=== PATIENT | male | born 1950 | race Caucasian/White ===

== ENCOUNTER → 2019-07-29 06:13 | Outpatient (CLI) | payer MEDICARE, SELFPAY ==
--- NOTE | 2019-07-29 | CA_ITS ---
APPROVED REPORT Exam: Pharmacologic Technologist: Maggie Gonzales Ht: 5 ft 8 in Wt: 156 lbs BSA: 1.84 m2 HR: 55 bpm BP: 139/58 mmHg Indications: CAD, Angina Medical History Medications: Amlodipine,,,,, Isosorbide,,,,, Aspirin,,,,, Losartan,,,,, Atorvastatin,,,,, Carvedilol,,,,, Iron,,,,, CloPIdogrel,,,,, Stress Test Details Test: LEXISCAN HR Resting HR: 67 bpm Max Heart Rate (APMHR): 151 bpm Max HR Achieved: 81 bpm Target HR (85% APMHR): 128 bpm % of APMHR: 53 Recovery HR: 70 bpm BP Resting BP: 139.0/58.0 mmHg Max BP: 139.0/58.0 mmHg Recovery BP: 131.0/59.0 mmHg ECG Clinical Reason for Termination: Completed Protocol Exercise duration: 04:05 min Highest Stage Achieved: Exercise capacity: 1.0 METs Stress ECG Conclusion Resting ECG: Sinus bradycardia, right bundle branch block Symptoms: None Arrhythmias/Ectopy: PVC's, Quadrigeminy ST-T Changes: Baseline right bundle branch block precludes diagnostic interpretation. Less than 1.[address] segment changes noted. Conclusion: Non-diagnostic stress test. Patient received the infusion per protocol without chest pain or significant arrhythmias. Frequent PVC's noted throughout stress and recovery. Transient quadrigeminy noted. Baseline EKG is sinus bradycardia with right bundle branch block. See the nuclear report for further interpretaion. Electronically signed by : Sherwin Nguyen, 07/31/2019 15:08:27
--- NOTE | 2019-07-29 06:17 | CA_ITS ---
[facility] RADIOLOGICAL CONSULTATION Patient Name : BARRINGTON HERNANDEZ X-RAY # : [id number] Physician: NELLY, TABITHA AGE: 69Y : 1950 00:00:00 ( M ) Exam : CA ECHO DOPPLER COMPLETE ACC # : [id number] Study Date : 07/29/2019 08:29:42 Patient Class : O FINAL REPORT CLINICAL DATA: FINDINGS: TRANSCRIBED REPORT EXAM: Comprehensive 2D, Doppler, and color-flow Echocardiogram Hay Farmer: Mary Carmen John CRT Ht: 5 ft 8 in Wt: 155lbs BSA: 1.83 BP: 143/62 mmHg Indications: CABG, stents, copd, smoker, htn, hyperlipidemia 2D Dimensions IVSd 1.40 cm LVEF (Visual) 52.90 % PWd 0.90 cm LVDd 5.80 cm LVDs 4.20 cm LVOT 1.90 cm (M/F) 1.5-2.5 M-Mode Dimensions LA Diam 4.20 cm (1.9-4.0) Ao Diam 3.90 cm (2.0-3.7) AV Cusp 1.90 cm (1.5-2.6) LV Diastology E/A Ratio 1.20 MED E' 6.34 (< 7 cm/sec) E'/MED E' Ratio 14.60 (>14) LAT E' 7.21 (<10 cm/sec) E/LAT E' Ratio 12.90 (>14) Aortic Valve AoV Peak Lemuel. 122.00 (50-130 cm/s) AO Peak GR. 6.00 mmHg Mitral Valve MV E Max Lemuel. 92.80 (40-130 cm/s) MV A Velocity 79.00 (40-130 cm/s) E/A Ratio 1.20 Pulmonary Valve DC End VMAX 137.00 cm/s PA Accel Time 134.00 (>120 msec) Tricuspid Valve TR P. Velocity 233.00 cm/s RAP Estimate 10.00 mmHg RVSP 32.00 mmHg Electronically signed by : IMPRESSION: Dictated by at Transcribed by at
--- NOTE | 2019-07-29 06:31 | NM_ITS ---
APPROVED REPORT Exam: Nuclear Stress Test Indication: Chest pain, SOB, HTN, High Cholesterol, Tobacco use, Family history, CAD, CABG Patient Location: Outpatient Stress Tech: Maggieray Gonzales [place] Tech:Chacha Alberto, THANGT, RT (R)(N) Ht: 5 ft 8 in Wt: 156 lbs HR: 55 bpm BP: 139/58 mmHg BSA: 1.84 m2 BMI: 23.7 History: Chest pain, SOB, HTN, High Cholesterol, Tobacco use, Family history, CAD, CABG Procedure: Patient received a 0.4 mg of intravenous Lexiscan, resting heart rate 55 bpm, resting blood pressure 139/58 mmHg, with Lexiscan maximum heart rate achived was 72 bpm which is % of the maximum predicted heart rate and blood pressure was 136/64 mmHg. With Lexiscan, patient denied any complaint of chest pain. Cardiac Stress and Resting SPECT Images: Cardiac Stress and Resting SPECT images were obtained using technetium 99m Myoview 31.9 mCi stress and 10.65 mCi at rest. The EF is low at 39% with global hypokinesia There is a large fixed defect in the inferior wall consistent with an area of infarction No reversible defects evident Conclusion: The EF is low at 39% with global hypokinesia There is a large fixed defect in the inferior wall consistent with an area of infarction No reversible defects evident Electronically signed by : Jeremie Farmer MD 07/31/2019 16:57:20
--- NOTE | 2019-07-29 07:19 | HMH.ITSHM ---
Current Home Medications as stated by this patient Kristopher Gallegos or roofing sales representative. []IRON ASA ALPRAZOLAM ISOSORBIDE CARVEDILOL CLOPIDOGREL AMLODIPINE LOSARTAN ATORVASTATIN
== END ==
PROVIDERS: PCP Internal Medicine; Visit Provider Internal Medicine
DX: I20.9 Angina pectoris, unspecified (principal); I34.0 Nonrheumatic mitral (valve) insufficiency; I48.0 Paroxysmal atrial fibrillation
CPT/HCPCS: 78452; 93017; 93306; A9502; J2785

== ENCOUNTER → 2019-08-20 11:45 | Outpatient (CLI) | payer MEDICARE, SELFPAY ==
[2019-08-20 13:12] LABS: Amphetamine/Metha Screen,Urine Negative ng/mL (<1000); Barbiturates Screen,Urine Negative ng/mL (<200); Benzodiazepines Screen,Urine Positive ng/mL (<200); Cannabinoid Screen,Urine Negative ng/mL (<50); Cocaine Screen,Urine Negative ng/mL (<300); Methadone Screen,Urine Negative ng/mL (<300); Opiate Screen,Urine Positive ng/mL (<300); Phencyclidine Screen,Urine Negative ng/mL (<25)
== END ==
PROVIDERS: Visit Provider Nurse Practitioner Family
DX: Z51.81 Encounter for therapeutic drug level monitoring (principal)
CPT/HCPCS: 80305

== ENCOUNTER → 2020-02-25 11:05 | Outpatient (CLI) | payer MEDICARE, SELFPAY ==
[2020-02-25 11:56] LABS: Blood Urea Nitrogen 29 mg/dl (9-20); Carbon Dioxide 22 mmol/L (22.0-30.0); Estimated Glomerular Filt Rate 35 ml/min (>60); GFR (African American) 43 ML/MIN (>60)
[2020-02-25 11:57] LABS: Calcium 8.9 mg/dl (8.4-10.2); Glucose 124 mg/dl (74-100)
[2020-02-25 11:58] LABS: Anion Gap 13.8 mEq/L (5-15); Chloride 108 mmol/L (98-107); Potassium 4.8 mmoL/L (3.5-5.1); Sodium 139 mmol/L (136-145)
[2020-02-25 16:36] LABS: Amphetamine/Metha Screen,Urine Negative ng/ml (<1000)
[2020-02-25 16:37] LABS: Barbiturates Screen,Urine Negative ng/ml (<200)
[2020-02-25 16:38] LABS: Benzodiazepines Screen,Urine Positive ng/ml (<200); Cannabinoid Screen,Urine Negative ng/ml (<50)
[2020-02-25 16:39] LABS: Cocaine Screen,Urine Negative ng/ml (<300)
[2020-02-25 16:40] LABS: Opiate Screen,Urine Positive ng/ml (<300)
[2020-02-25 16:41] LABS: Phencyclidine Screen,Urine Negative ng/ml (<25)
[2020-02-25 16:52] LABS: Methadone Screen,Urine Negative ng/ml (<300)
== END ==
PROVIDERS: Urology; Visit Provider Nurse Practitioner Family
DX: Z79.899 Other long term (current) drug therapy (principal); E78.5 Hyperlipidemia, unspecified; F41.9 Anxiety disorder, unspecified; I11.9 Hypertensive heart disease without heart failure; I25.10 Atherosclerotic heart disease of native coronary artery without angina pectoris; I42.9 Cardiomyopathy, unspecified; I48.91 Unspecified atrial fibrillation; J44.9 Chronic obstructive pulmonary disease, unspecified; Z72.0 Tobacco use
CPT/HCPCS: 36415; 80048; 80305

== ENCOUNTER → 2020-08-25 11:32 | Outpatient (CLI) | payer MEDICARE, SELFPAY ==
[2020-08-25 11:56] LABS: Basophils # 0.1 K/mm3 (0-0.2); Basophils % 0.7 % (0.1-2.0); Eosinophils # 0.5 K/mm3 (0.0-0.4); Eosinophils % 4.9 % (0.1-12.0); Hematocrit 40.5 % (42.0-52.0); Hemoglobin 12.9 g/dL (14.1-18.0); Lymphocytes # 2.6 K/mm3 (0.7-4.5); Lymphocytes % 27.1 % (10-50); Mean Corpuscular HGB Conc 31.7 g/dL (31.8-35.4); Mean Corpuscular Hemoglobin 31.8 pg (27.0-31.2); Mean Corpuscular Volume 100.4 fl (80-94); Mean Platelet Volume 9.8 fl (7.4-10.4); Monocytes # 0.4 K/mm3 (0.1-1.0); Monocytes % 4.5 % (1.7-9.3); Neutrophils % 62.9 % (37.0-80.0); Platelet Count 176 K/mm3 (142-424); Red Blood Count 4.04 M/mm3 (4.60-6.20); Red Cell Distribution Width 12.6 % (11.5-17.5); White Blood Count 9.5 K/mm3 (4.8-10.8)
[2020-08-25 13:12] LABS: Chloride 114 mmol/L (98-107); Sodium 146 mmol/L (136-145)
[2020-08-25 13:13] LABS: Potassium 5.2 mmoL/L (3.5-5.1)
[2020-08-25 13:15] LABS: Alanine Aminotransferase 11 U/L (12-78); Alkaline Phosphatase 112 U/L (38-126); Anion Gap 15.2 mEq/L (5-15); Aspartate Amino Transferase 19 U/L (17-59); Bilirubin,Direct 0.2 mg/dl (0.0-0.4); Bilirubin,Indirect 0.4 mg/dL (0.0-0.9); Bilirubin,Total 0.6 mg/dl (0.2-1.3); Bilirubin,Unconjugated 0.4 mg/dL (0.0-1.1); Blood Urea Nitrogen 31 mg/dl (9-20); Carbon Dioxide 22 mmol/L (22.0-30.0); Cholesterol 201 mg/dl (140-200); Estimated Glomerular Filt Rate 30 ml/min (>60); GFR (African American) 36 ML/MIN (>60); Triglycerides 142 mg/dl (30-150); VLDL Cholesterol 28 mg/dL (0-40)
[2020-08-25 13:16] LABS: Albumin Level 4.6 g/dl (3.5-5.0); Calcium 9.6 mg/dl (8.4-10.2); Chol/HDL Ratio 3.7 (1-3.5); Glucose 81 mg/dl (74-100); HDL Cholesterol 54 mg/dl (40-60); Total Protein,Serum 7.4 g/dl (6.3-8.2)
[2020-08-25 13:27] LABS: Direct LDL Cholesterol 103.73 mg/dL (100-129)
[2020-08-25 13:46] LABS: Thyroid Stimulating Hormone 2.67 uIU/mL (0.465-4.68)
[2020-08-25 16:01] LABS: Amphetamine/Metha Screen,Urine Negative ng/ml (<1000); Benzodiazepines Screen,Urine Positive ng/ml (<200)
[2020-08-25 16:02] LABS: Barbiturates Screen,Urine Negative ng/ml (<200)
[2020-08-25 16:03] LABS: Cannabinoid Screen,Urine Negative ng/ml (<50); Methadone Screen,Urine Negative ng/ml (<300)
[2020-08-25 16:04] LABS: Cocaine Screen,Urine Negative ng/ml (<300)
[2020-08-25 16:05] LABS: Opiate Screen,Urine Positive ng/ml (<300)
[2020-08-25 16:06] LABS: Phencyclidine Screen,Urine Negative ng/ml (<25)
[2020-08-25 20:31] LABS: Free T4 (Free Thyroxine) 1.18 ng/dl (0.78-2.19)
== END ==
PROVIDERS: Visit Provider Physician Assistant
DX: E78.5 Hyperlipidemia, unspecified (principal); F32.9 Major depressive disorder, single episode, unspecified; F41.9 Anxiety disorder, unspecified; I11.9 Hypertensive heart disease without heart failure; I20.9 Angina pectoris, unspecified; I45.10 Unspecified right bundle-branch block; I48.91 Unspecified atrial fibrillation; J44.9 Chronic obstructive pulmonary disease, unspecified; R42 Dizziness and giddiness; Z72.0 Tobacco use; Z79.899 Other long term (current) drug therapy
CPT/HCPCS: 36415; 80048; 80061; 80076; 80305; 84439; 84443; 85025

== ENCOUNTER → 2020-08-27 09:45 | Outpatient (CLI) | payer MEDICARE, SELFPAY ==
--- NOTE | 2020-08-27 09:46 | CA_ITS ---
APPROVED REPORT Supervisor Operations: CT Laterality: Bilateral Indications: AMANDA Risk Factors Hypertension: Hyperlipidemia Smoking Doppler Spectral Velocity Analysis ECA (R) 175.50/ cm/s ECA (L) 224.20/ cm/s dICA (R) 93.50/26.20 cm/s dICA (L) 97.30/26.00 cm/s Doreen (R) 114.50/24.70 cm/s Doreen (L) 110.80/32.70 cm/s pICA (R) 83.80/20.20 cm/s pICA (L) 119.40/17.30 cm/s dCCA (R) 96.30/16.10 cm/s dCCA (L) 74.10/13.50 cm/s pCCA (R) 76.50/12.80 cm/s pCCA (L) 104.80/18.70 cm/s Vert (R) 32.90/ cm/s Vert (L) 84.50/ cm/s ICA/CCA 1.20 ICA/CCA 1.60 Findings Duplex evaluation demonstrates stenosis of the right proximal internal carotid artery in the range of 20-49%. Duplex evaluation demonstrates stenosis of the left proximal internal carotid artery in the range of 20-49%. Duplex evaluation demonstrates antegrade flow of the bilateral Vertebral Arteries. Conclusion Duplex evaluation demonstrates stenosis of the right proximal internal carotid artery in the range of 20-49%. Duplex evaluation demonstrates stenosis of the left proximal internal carotid artery in the range of 20-49%. Duplex evaluation demonstrates antegrade flow of the bilateral Vertebral Arteries. Electronically signed by : Jeremie Farmer MD 08/27/2020 17:25:06
== END ==
PROVIDERS: PCP Internal Medicine; Visit Provider Physician Assistant
DX: E78.5 Hyperlipidemia, unspecified (principal); F32.9 Major depressive disorder, single episode, unspecified; F41.9 Anxiety disorder, unspecified; I11.9 Hypertensive heart disease without heart failure; I20.9 Angina pectoris, unspecified; I45.10 Unspecified right bundle-branch block; I48.91 Unspecified atrial fibrillation; J44.9 Chronic obstructive pulmonary disease, unspecified; R42 Dizziness and giddiness; Z72.0 Tobacco use; Z79.899 Other long term (current) drug therapy; I65.23 Occlusion and stenosis of bilateral carotid arteries
CPT/HCPCS: 93880

== ENCOUNTER → 2020-09-30 09:58 | Outpatient (CLI) | payer MEDICARE, SELFPAY ==
[2020-09-30 10:53] LABS: Chloride 112 mmol/L (98-107)
[2020-09-30 10:54] LABS: Potassium 4.8 mmoL/L (3.5-5.1); Sodium 141 mmol/L (136-145)
[2020-09-30 10:57] LABS: Anion Gap 10.8 mEq/L (5-15); Blood Urea Nitrogen 25 mg/dl (9-20); Calcium 9.1 mg/dl (8.4-10.2); Carbon Dioxide 23 mmol/L (22.0-30.0); Estimated Glomerular Filt Rate 37 ml/min (>60); GFR (African American) 45 ML/MIN (>60); Glucose 105 mg/dl (74-100)
== END ==
PROVIDERS: Visit Provider Physician Assistant
DX: E87.5 Hyperkalemia (principal)
CPT/HCPCS: 36415; 80048